=== PATIENT | female | born 1955 | race Caucasian/White ===

== ENCOUNTER 2020-08-26 08:39 | Outpatient (REF) | payer OTHER, SELFPAY ==
--- NOTE | 2020-08-26 | MM_ITS ---
EXAMINATION: MM SCREENING DIGITAL BREAST TOMOSYNTHESIS, BILATERAL CLINICAL INFORMATION: Screening. Asymptomatic. The lifetime risk of breast cancer based on the Tyrer-Cuzick Model is 7.0%. COMPARISON: Mammography: December 03, 2018 and studies dating back to October 05, 2009 TECHNIQUE: Digital breast tomosynthesis is performed in both the craniocaudal and mediolateral oblique views along with computer-aided detection (CAD). Synthesized 2D images are generated from the tomosynthesis. FINDINGS: The breasts are heterogeneously dense, which may obscure small masses (ACR BI-RADS breast composition Category c). There are no significant masses, abnormal calcifications, or other abnormalities. MM/MM tomosynthesis screening BI IMPRESSION: There are no significant changes from prior study. ASSESSMENT: BI-RADS 1: Negative RECOMMENDATION: Routine annual mammography screening. This patient's information was entered into a reminder system with a target due date for their next mammogram.
== END 2020-08-26 08:40 | disposition home or self-care (01) ==
LOC: HO.MAMMO 08:39
PROVIDERS: PCP Internal Medicine; Visit Provider Internal Medicine
DX: Z12.31 Encounter for screening mammogram for malignant neoplasm of breast (principal)
CPT/HCPCS: 77063; 77067

== ENCOUNTER 2021-09-29 08:56 | Outpatient (REF) | payer OTHER, SELFPAY ==
--- NOTE | ~2021-09-29 | MM_ITS ---
EXAMINATION: MM SCREENING DIGITAL BREAST TOMOSYNTHESIS, BILATERAL CLINICAL INFORMATION: Screening. Asymptomatic. The lifetime risk of breast cancer based on the Tyrer-Cuzick Model is 5%. COMPARISON: Mammography: 08/26/2020, 12/03/2018, 07/15/2015 TECHNIQUE: Digital breast tomosynthesis is performed in both the craniocaudal and mediolateral oblique views along with computer-aided detection (CAD). Synthesized 2D images are generated from the tomosynthesis. Technologist notes patient study limitations, healing fracture left shoulder with limited range of motion. Exam optimized to patient capabilities. FINDINGS: There are scattered areas of fibroglandular density (ACR BI-RADS breast composition Category b). There are no significant masses, abnormal calcifications, or other abnormalities. Parenchymal pattern is similar to prior studies. There are no significant changes. MM/MM tomosynthesis screening BI IMPRESSION: No mammographic evidence of malignancy. ASSESSMENT: BI-RADS 1: Negative RECOMMENDATION: Routine annual mammography screening. This patient's information was entered into a reminder system with a target due date for their next mammogram.
== END 2021-09-29 08:57 | disposition home or self-care (01) ==
LOC: HO.MAMMO 08:56
PROVIDERS: Visit Provider Internal Medicine
DX: Z12.31 Encounter for screening mammogram for malignant neoplasm of breast (principal)
CPT/HCPCS: 77063; 77067

== ENCOUNTER 2022-02-24 11:06 | Outpatient (REF) | payer OTHER, SELFPAY ==
--- NOTE | ~2022-02-24 | MM_ITS ---
EXAMINATION: BONE DENSITOMETRY CLINICAL INDICATION: Osteopenia. COMPARISON: Baseline BD dated 06/03/2017. TECHNIQUE: Using a [employer] DXA System (software version: 13.1) manufactured by [employer], dual-energy x-ray absorptiometry was performed of the lumbar spine and left hip. The images are of good technical quality. Summary results are attached. FINDINGS: AP SPINE L1-L4: Current: BMD 0.982 g/cm2, Z-score -0.5, T-score -1.6, osteopenia, 5.5% decrease from baseline (<5% change is not significant). Baseline: BMD 1.039 g/cm2. LEFT FEMUR, NECK: Current: BMD 0.753 g/cm2, Z-score -0.7, T-score -2.1, osteopenia. Baseline: BMD 0.747 g/cm2. LEFT FEMUR, TOTAL: Current: BMD 0.755 g/cm2, Z-score -1.0, T-score -2.0, osteopenia, 4.2% decrease from baseline (<5% change is not significant). Baseline: BMD 0.788 g/cm2. IDENTIFIED RISK FACTORS: Menopause, family history (parent hip fracture), history of fracture (adult), secondary osteoporosis. HISTORY OF FRACTURE: Shoulder/humerus; other, no insufficiency fracture reported. MEDICATIONS: Calcium or multivitamin. Vitamin D. MM/XR DEXA axial skeleton IMPRESSION: 1. DIAGNOSIS: Osteopenia based on the lowest T-score value of -2.1 in the femoral neck applying World Health Organization criteria. 2. 10-YEAR FRACTURE RISK PREDICTION, FRAX: Major osteoporotic fracture (clinical spine, forearm, hip or shoulder) 28.9%. Hip fracture 5.7%. 3. Treatment Recommendations: NOF guidelines recommend consideration for treatment in postmenopausal women and men age 50 and older presenting with the following: -A hip or vertebral (clinical or morphometric) fracture. -T-score less than or equal to -2.5 at the femoral neck or spine after appropriate evaluation to exclude secondary causes. -Low bone mass at the hip or spine and a 10-year fracture probability by FRAX of greater than or equal to 3% for hip fracture or greater than or equal to 20% for major osteoporotic fracture based on the [place] adapted WHO algorithm. 4. Other Recommendations: All treatment decisions require clinical judgment and consideration of individual patient factors, including patient preferences, comorbidities, previous drug use, risk factors not captured in the FRAX model (e.g. frailty, falls, vitamin D deficiency, increased bone turnover, interval significant decline in bone density) and possible under or overestimation of fracture risk by FRAX. Additional medical evaluation for secondary cause of low bone mineral density may be appropriate. FUTURE SCAN RECOMMENDATION: People with diagnosed cases of osteoporosis or at high risk for fracture should have regular bone mineral density tests. For patients eligible for Medicare, routine testing is allowed once every 2 years. The testing frequency can be increased to one year for patients who have rapidly progressing disease, those who are receiving or discontinuing medical therapy to restore bone mass, or have additional risk factors.
== END 2022-02-24 11:07 | disposition home or self-care (01) ==
LOC: HO.MAMMO 11:06
PROVIDERS: PCP Obstetrics & Gynecology; Visit Provider Obstetrics & Gynecology
DX: Z13.820 Encounter for screening for osteoporosis (principal); M85.80 Other specified disorders of bone density and structure, unspecified site; Z78.0 Asymptomatic menopausal state
CPT/HCPCS: 77080

== ENCOUNTER 2022-10-09 09:30 | Outpatient (REF) | payer OTHER, SELFPAY ==
--- NOTE | ~2022-10-09 | MM_ITS ---
EXAMINATION: MM SCREENING DIGITAL BREAST TOMOSYNTHESIS, BILATERAL CLINICAL INFORMATION: Screening. Asymptomatic. The lifetime risk of breast cancer based on the Tyrer-Cuzick Model is 8%. COMPARISON: Mammography: 09/29/2021, 08/26/2020, 12/03/2018 TECHNIQUE: Digital breast tomosynthesis is performed in both the craniocaudal and mediolateral oblique views along with computer-aided detection (CAD). Synthesized 2D images are generated from the tomosynthesis. Additional right MLO view is provided. FINDINGS: There are scattered areas of fibroglandular density (ACR BI-RADS breast composition Category b). There are no significant masses, abnormal calcifications, or other abnormalities. Parenchymal pattern is similar to prior studies. There is no developing density or architectural abnormality. The axilla and skin contours are unremarkable. No significant changes. MM/MM tomosynthesis screening BI IMPRESSION: No mammographic evidence of malignancy. ASSESSMENT: BI-RADS 1: Negative RECOMMENDATION: Routine annual mammography screening. This patient's information was entered into a reminder system with a target due date for their next mammogram.
== END 2022-10-09 09:31 | disposition home or self-care (01) ==
LOC: HO.MAMMO 09:30
PROVIDERS: PCP Internal Medicine; Visit Provider Internal Medicine
DX: Z12.31 Encounter for screening mammogram for malignant neoplasm of breast (principal)
CPT/HCPCS: 77063; 77067

== ENCOUNTER → 2023-10-15 14:45 | Outpatient (BNV) | payer MEDICARE, OTHER, SELFPAY | PROVIDERS: PCP Internal Medicine; Visit Provider Radiology Diagnostic Radiology | DX: Z12.31 Encounter for screening mammogram for malignant neoplasm of breast (principal) | CPT/HCPCS: 77063; 77067 ==

== ENCOUNTER 2023-10-15 14:49 | Outpatient (REF) | payer MEDICARE, OTHER, SELFPAY ==
--- NOTE | ~2023-10-15 | MM_ITS ---
EXAMINATION: MM SCREENING DIGITAL BREAST TOMOSYNTHESIS, BILATERAL CLINICAL INFORMATION: Screening. Asymptomatic. COMPARISON: Mammography: 10/09/2022, 09/29/2021, 08/26/2020, 12/03/2018. TECHNIQUE: Digital breast tomosynthesis is performed in both the craniocaudal and mediolateral oblique views along with computer-aided detection (CAD). Synthesized 2D images are generated from the tomosynthesis. FINDINGS: There are scattered areas of fibroglandular density (ACR BI-RADS breast composition Category b). There are no significant masses, abnormal calcifications, or other abnormalities. No skin or axillary abnormalities. The parenchymal pattern is unchanged from prior exams. MM/MM tomosynthesis screening BI IMPRESSION: No mammographic evidence of malignancy. ASSESSMENT: BI-RADS BI-RADS 1 - Negative RECOMMENDATION: Routine annual mammography screening. 1 year F/U This examination should not preclude the clinical evaluation of a suspicious palpable abnormality. This patient's information was entered into a reminder system with a target due date for their next mammogram.
== END 2023-10-15 14:50 | disposition home or self-care (01) ==
LOC: HO.MAMMO 14:49
PROVIDERS: PCP Internal Medicine; Visit Provider Obstetrics & Gynecology
DX: Z12.31 Encounter for screening mammogram for malignant neoplasm of breast (principal)
CPT/HCPCS: 77063; 77067

== ENCOUNTER 2024-03-24 13:29 | Outpatient (REF) | payer MEDICARE, OTHER, SELFPAY ==
--- NOTE | ~2024-03-24 | MM_ITS ---
EXAMINATION: BONE DENSITOMETRY CLINICAL INDICATION: Menopause. COMPARISON: Previous BD dated 2021 and baseline BD dated 06/03/2017. TECHNIQUE: Using a [employer] DXA System (software version: 13.1) manufactured by [employer], dual-energy x-ray absorptiometry was performed of the lumbar spine and left hip. The images are of good technical quality. Summary results are attached. FINDINGS: LEFT FEMUR, NECK: Current: BMD 0.738 g/cm2, Z-score -0.8, T-score -2.2, osteopenia. Prior: BMD 0.753 g/cm2. Baseline: BMD 0.747 g/cm2. LEFT FEMUR, TOTAL: Current: BMD 0.780 g/cm2, Z-score -0.7, T-score -1.8, osteopenia, 3.3% increase from previous, 1.0% decrease from baseline (<5% change is not significant). Prior: BMD 0.755 g/cm2. Baseline: BMD 0.788 g/cm2. AP SPINE L1-L4: Current: BMD 0.988 g/cm2, Z-score -0.4, T-score -1.6, osteopenia, 0.6% increase from previous, 4.9% decrease from baseline (<5% change is not significant). Prior: BMD 0.982 g/cm2. Baseline: BMD 1.039 g/cm2. IDENTIFIED RISK FACTORS: Menopause, history of fracture (adult), family history (parent hip fracture). HISTORY OF FRACTURE: Shoulder. MEDICATIONS: Calcium or multivitamin. Vitamin D. MM/XR DEXA axial skeleton IMPRESSION: 1. DIAGNOSIS: Osteopenia based on the lowest T-score value of -2.2 in the femoral neck applying World Health Organization criteria. 2. 10-YEAR FRACTURE RISK PREDICTION, FRAX: Major osteoporotic fracture (clinical spine, forearm, hip or shoulder) 29.7%. Hip fracture 9.4%. 3. Treatment Recommendations: NOF guidelines recommend consideration for treatment in postmenopausal women and men age 50 and older presenting with the following: -A hip or vertebral (clinical or morphometric) fracture. -T-score less than or equal to -2.5 at the femoral neck or spine after appropriate evaluation to exclude secondary causes. -Low bone mass at the hip or spine and a 10-year fracture probability by FRAX of greater than or equal to 3% for hip fracture or greater than or equal to 20% for major osteoporotic fracture based on the [place] adapted WHO algorithm. 4. Other Recommendations: All treatment decisions require clinical judgment and consideration of individual patient factors, including patient preferences, comorbidities, previous drug use, risk factors not captured in the FRAX model (e.g. frailty, falls, vitamin D deficiency, increased bone turnover, interval significant decline in bone density) and possible under or overestimation of fracture risk by FRAX. Additional medical evaluation for secondary cause of low bone mineral density may be appropriate. FUTURE SCAN RECOMMENDATION: People with diagnosed cases of osteoporosis or at high risk for fracture should have regular bone mineral density tests. For patients eligible for Medicare, routine testing is allowed once every 2 years. The testing frequency can be increased to one year for patients who have rapidly progressing disease, those who are receiving or discontinuing medical therapy to restore bone mass, or have additional risk factors. Electronically signed by: Saeed Marie MD 03/28/2024 11:20 AM EDT
== END 2024-03-24 13:30 | disposition home or self-care (01) ==
LOC: HO.MAMMO 13:29
PROVIDERS: PCP Internal Medicine; Visit Provider Internal Medicine
DX: Z13.820 Encounter for screening for osteoporosis (principal); Z78.0 Asymptomatic menopausal state; M85.80 Other specified disorders of bone density and structure, unspecified site
CPT/HCPCS: 77080

== ENCOUNTER → 2024-10-17 11:30 | Outpatient (BNV) | payer MEDICARE, OTHER, SELFPAY | PROVIDERS: PCP Internal Medicine; Visit Provider Internal Medicine | DX: Z12.31 Encounter for screening mammogram for malignant neoplasm of breast (principal) | CPT/HCPCS: 77063; 77067 ==

== ENCOUNTER 2024-10-17 11:36 | Outpatient (REF) | payer MEDICARE, OTHER, SELFPAY ==
--- OUTSIDE RECORDS SUMMARY | 2024-10-17 14:22 | XMS_ITS | Data Portability ---
Author Organization [facility], Main Office Address [address] [facility] [address] [place] [address] Care Team Providers Care Insurance Analyst Name Role Phone KALINA FRIED Flue Gas Analyst DONNY LACKEY Urologist KATJA BURKETT Primary Care Provider [facility] ENDO[facility] DIABETES SCHEDULING E ndocrinologist Assessment No assessment recorded. Plan of Treatment Reminders Order Date Submit Date Provider Last Modified By Organization Details Last Modified Time Details Appointments None recor ded. Lab lipid panel , serum 2017 018 abolcun [facility], [address] [facility], [facility], [place], [address], 8 15:39:08 hepat itis C virus Ab, serum 2017 018 abolcun [facility], [address] [address], [place], [address], 8 15:39:07 CBC w/ auto diff 2016 017 abigby [facility], [address] [facility], [facility], [place], [address], 7 16:01:32 Referral ortho pedic refer ral - pt will need shoul tj eval. possi naveen injxn . pt has pain w/ abduc tion of left shoul tj/ tende r on delto id/ may be bursa l infla mmati on 2016 017 nbarrows [facility] (Jimmie Kern), [address] [facility] [place] [address], [place], [address], 7 14:28:26 derma tolog ist refer ral - pt has tiny bluis h lesio n on upper lip. pt tarsha rned if she needs this remov ed 2016 017 holger Richardson MD, [address] [place] [address] , [place], [address], 7 09:59:45 Procedures None recor ded. Surgeries None recor ded. Imaging MAMMO , scree marc, bilat eral - Perfo rm Diagn ostic Mammo gram and Breas t Ultra sound if neede d / Perfo rm Ultra sound Guide d Aspir ation and/o r Breas t Biops y if warra nted 2017 018 [email or web address] [facility], [address] [place], [address], 8 16:17:53 Medication Orders Lexap ro 20 mg table t 2017 018 [email or web address] Not available 8 16:16:56 ibupr ofen 600 mg table t 2016 017 [facility], [address] [place], [address], 8 15:18:54 Lexap ro 20 mg table t 2016 017 mdalessandro Not available 7 14:04:45 ranit idine 150 mg table t 2016 017 [email or web address] Not available 7 14:04:45 Beulah conrad Perle s 100 mg capsu le 2015 016 [id number], [address], [place], [id number], 7 13:45:43 predn isone 20 mg table t 2015 016 [id number], [address], [place], [id number], 7 13:27:41 doxyc yclin e hycla te 100 mg table t 2015 016 [facility][id number], [address], [place], [id number], 7 13:27:21 Patient TargetsNo targets recorded. Patient Instructions Encounter Date Encounter Id Patient Instructions Last Modified By Organization Details Last Modified Time 10/24/2015 [id number] Medications (OTC, herbal therapies, supplements) reviewed and reconciled with patient and or caregiver, including potential side effects, drug interactions, instructions, and the consequences of not taking medication. Reviewed potential barriers to medication adherence, such as side effects from medication or cost of medication. ely Not available 10/24/2015 11:57:18 11/10/2016 [id number] Medications (OTC, herbal therapies, supplements) reviewed and reconciled with patient and or caregiver, including potential side effects, drug interactions, instructions, and the consequences of not taking medication. Reviewed potential barriers to medication adherence, such as side effects from medication or cost of medication. [email or web address] Not available 11/10/2016 14:03:19 10/27/2017 [id number] upper respiratory infection (cold): care instructions Not available 10/27/2017 11:02:14 saline nasal washes: care instructions Not available 10/27/2017 11:02:14 Chart reviewed, agree with above assessment and plan. 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 pt concerned if she needs this removed Referring Physician: Raul Gimenez, Internal Medicine, Encounter Date: 11/10/2016 Orthopedic Referral for Shou lder pain pt will need shoulder eval. possibly injxn. pt has pain w/ abduction of left shoulder/ tender on deltoid/ may be bursal inflammation Referring Physician: Raul Gimenez, Internal Medicine, Encounter Date: 05/20/2017 Results Created Date Observation Date Name Description Value Unit Range Abnormal Flag Note LastModifiedBy Organization Detail LastModifiedTime 10/02/19 16 10/02/2015 rapid strep group A, throa t Strep negati ve Not Available In-Office Order Internal Use Only DO Not Attach Compendium DO Not Attach Compendium, Do Not Delete/merge, [id number] 10/02/2015 11:38:57 10/02/19 16 10/02/2015 strep tococ cus group A, cultu re, throa t specimen description THROAT SWAB Not Available [facility] (Centralized Electronic Ordering - All Locations) Patient Can Go To The Location Of Their Choice, [id number] 10/04/2015 09:51:07 10/02/19 16 10/02/2015 strep tococ cus group A, cultu re, throa t special requests NONE Not Available [facility] (Centralized Electronic Ordering - All Locations) Patient Can Go To The Location Of Their Choice, [id number] 10/04/2015 09:51:07 10/02/19 16 10/04/2015 strep tococ cus group A, cultu re, throa t culture NO GROUP A BETA HEMOLY TIC STREPT OCOCCI ISOLAT ED Not Available [facility] (Centralized Electronic Ordering - All Locations) Patient Can Go To The Location Of Their Choice, [id number] 10/04/2015 09:51:07 10/02/19 16 10/04/2015 strep tococ cus group A, cultu re, throa t report status FINAL 2015 Not Available [facility] (Centralized Electronic Ordering - All Locations) Patient Can Go To The Location Of Their Choice, [id number] 10/04/2015 09:51:07 10/22/19 16 10/22/2015 CT maxil lofac e w/o contr ast CT of the sinuse s HISTOR Y: Chroni c sinusi tis. TECHNI QUE: Noncon trast axial CT of the sinuse s was perfor med with salazar l and sagitt al reform atted images . RADIAT ION DOSE PARAME TERS: CTDIvo l Head: 10.62 mGy, DLP Head: 155 mGy*cm . COMPAR DERICK: None availa ble. FINDIN GS: There is mild volume loss in the visual ized brain. The orbita l soft tissue s are normal . Centra l skull base is grossl y unrema rkable . All of the sinuse s are well-d evelop ed. There is no signif icant mucosa l thicke marc in any of the sinuse s. The lamina papyra cea are intact . The left fovea ethmoi maryuri is about 3 mm higher than the right. There is an incomp lete obliqu kaylin orient ed horizo ntal septat ion throug h each maxill narendra sinus, throug h which the infrao rbital canal pablo ses on each side. Both ostiom eatal units are patent . There is a small left devi bullos a and devi lamell a with very slight rightw taylor deviat ion of the nasal septum . Nasal cavity is well aerate d. The visual ized mastoi ds and middle ear clefts are well develo ped and normal ly aerate d. IMPRES KOKI: There is no parana patricia sinus diseas e. Slight rightw taylor deviat ion of the nasal septum . Dictat ed By: Oneyda Bello MD Dictat ed Date/T adelso: 11:18 a Review ed By: Oneyda Bello MD Signed By: Oneyda Bello MD Signed Date/T adelso: 11:18 am Transc ribed By: CSB Transc ribed Date/T adelso: 11:18 am Patien t Class: Outpat ient [facility] (Outpt Imaging) [address], [place], [address], 11/02/2015 11:51:17 10/22/19 16 10/22/2015 CT maxil lofac e w/o contr ast CT of the sinuse s HISTOR Y: Chroni c sinusi tis. TECHNI QUE: Noncon trast axial CT of the sinuse s was perfor med with salazar l and sagitt al reform atted images . RADIAT ION DOSE PARAME TERS: CTDIvo l Head: 10.62 mGy, DLP Head: 155 mGy*cm . COMPAR DERICK: None availa ble. FINDIN GS: There is mild volume loss in the visual ized brain. The orbita l soft tissue s are normal . Centra l skull base is grossl y unrema rkable . All of the sinuse s are well-d evelop ed. There is no signif icant mucosa l thicke marc in any of the sinuse s. The lamina papyra cea are intact . The left fovea ethmoi maryuri is about 3 mm higher than the right. There is an incomp lete obliqu kaylin orient ed horizo ntal septat ion throug h each maxill narendra sinus, throug h which the infrao rbital canal pablo ses on each side. Both ostiom eatal units are patent . There is a small left devi bullos a and devi lamell a with very slight rightw taylor deviat ion of the nasal septum . Nasal cavity is well aerate d. The visual ized mastoi ds and middle ear clefts are well develo ped and normal ly aerate d. IMPRES KOKI: There is no parana patricia sinus diseas e. Slight rightw taylor deviat ion of the nasal septum . Dictat ed By: Oneyda Bello MD Dictat ed Date/T adelso: 11:18 a Review ed By: Oneyda Bello MD Signed By: Oneyda Bello MD Signed Date/T adelso: 11:18 am Transc ribed By: JESÚS Transc ribed Date/T adelso: 11:18 am Patien t Class: Outpat ient [facility] (Outpt Imaging) [address], [place], [address], 11/02/2015 11:51:16 01/24/20 16 01/15/2016 LDCT, chest , for lung cance r scree marc No observ ation record ed. contra [facility] [place] [address] [facility] [address], [place], [address], 01/24/2016 11:34:05 11/12/19 17 07/15/2015 MAMMO , scree marc, bilat eral No observ ation record ed. [facility] [address] [place] [address], [place], [address], 11/11/2016 15:47:54 06/09/20 17 06/03/2017 bone densi ty No observ ation record ed. [email or web address] Not Available 2016 11:44:23 12/03/19 18 07/15/2015 MAMMO , scree marc, digit al, bilat eral No observ ation record ed. [address], [place], [address], 12/03/2017 09:39:23 Result Notes None recorded. Problems Name Problem SNOMED Code Status Onset Date Resolution Date Notes Provider Name and Address Organization Details Recorded Time Abdomina l pain 78046253 Completed 201202/06/2014 RECORDED 08/12/19 13 2:33PM BY EDELMIRA BRADLEY MA, LULA ON/ADDELIGIO dominguez [facility] 6 12:03:32 Anxiety state 038986382 Active 2012 Teressa dominguez [facility] 7 10:37:51 Tobacco user 048776203 Active 2012 Teressa dominguez [facility] 7 10:39:46 History of clinical finding in subject 155265392 Completed 201211/10/2016 RECORDED 05/29/20 13 8:26AM BY JANESSA ARREDONDO MA, ANNOTATI ON/ADDELIGIO dominguez [facility] 7 10:38:48 Examinat ion for suspecte d mental disorder Completed 201202/06/2014 RECORDED 01/06/20 13 3:33PM BY EDELMIRA BRADLEY MA, ANNOTATI ON/ADDEN DUM Raul D'Alessan bobby null, [facility] 6 12:03:32 Basal cell carcinom a of skin 157077433 Active 2012 Teressa dominguez, [facility] 7 10:37:57 Hematoch ezia 928384694 Completed 201202/06/2014 RECORDED 08/12/19 13 2:32PM BY EDELMIRA BRADLEY MA, ANNOTATI ON/ADDEN DUM Raul D'Alessan bobby null, [facility] 6 12:03:32 Screenin g for malignan t neoplasm of cervix Completed 201202/06/2014 RECORDED 01/06/20 13 3:33PM BY EDELMIRA BRADLEY MA, ANNOTATI ON/ADDEN DUM Raul D'Alessan bobby null, [facility] 6 12:03:32 Ulcerati ve colitis 33549888 Active 2012 Teressa dominguez, [facility] 7 10:39:22 Screenin g for malignan t neoplasm of colon Completed 201102/06/2014 RECORDED 06/21/20 12 2:34PM BY EDELMIRA BRADLEY MA, ALEXANDERATI ON/ADDEN DUM Teressa dominguez, [facility] 7 10:38:29 Constipa tion 72198194 Completed 201202/06/2014 RECORDED 08/12/19 13 2:32PM BY EDELMIRA BRADLEY MA, ANNOTATI ON/ADDEN DUM Raul D'Alessan bobby null, [facility] 6 12:03:31 Single major depressi ve episode Active 2012 Teressa dominguez, [facility] 7 10:38:21 Diarrhea 06651596 Completed 201202/06/2014 RECORDED 08/12/19 13 2:32PM BY EDELMIRA BRADLEY MA, ANNOTATI ON/ADDEN DUM Raul D'Alessan bobby null, [facility] 6 12:03:32 Elevated blood-pr essure reading without diagnosi s of hyperten koki 417353049 Completed 201202/06/2014 RECORDED 04/07/20 13 3:14PM BY EDELMIRA BRADLEY MA, ANNOTATI ON/ADDEN DUM Raul D'Alessan bobby null, [facility] 6 12:03:32 Follow-u p encounte r Completed 201202/06/2014 RECORDED 01/06/20 13 3:33PM BY EDELMIRA BRADLEY MA, ANNOTATI ON/ADDEN DUM Raul D'Alessan bobby null, [facility] 6 12:03:32 Malaise and fatigue 246591473 Completed 201211/10/2016 RECORDED 05/29/20 13 8:26AM BY JANESSA ARREDONDO MA, OFFICE VISIT Teressa dominguez, [facility] 7 10:38:25 Flatulen ce, eructati on and gas pain 802274088 Completed 201202/06/2014 RECORDED 08/12/19 13 2:32PM BY EDELMIRA BRADLEY MA, ANNOTATI ON/ADDEN DUM Raul D'Alessan bobby null, [facility] 6 12:03:32 Influenz a vaccine needed [id number] 06 Completed 201202/06/2014 RECORDED 05/29/20 13 8:26AM BY JANESSA ARREDONDO MA, ANNOTATI ON/ADDEN DUM Raul D'Alessan bobby null, [facility] 6 12:03:32 Tobacco user 724006881 Completed 201202/06/2014 RECORDED 05/29/20 13 8:26AM BY JANESSA ARREDONDO MA, ANNOTATI ON/ADDEN DUM Teressa dominguez, [facility] 7 10:39:46 Adult health examinat ion Completed 201311/10/2016 RECORDED 08/08/19 14 11:17AM BY WALTER BARBA, HISTORIC AL SUMMARY Teressa dominguez, [facility] 7 10:37:59 Adult health examinat ion Completed 201102/06/2014 RECORDED 06/21/20 12 2:34PM BY EDELMIRA BRADLEY MA, ANNOTATI ON/ADDEN DUM Teressa Weaver MA null, [facility] 7 10:37:59 Gastroes ophageal reflux disease 098740698 Active 2012 Teressa Weaver MA null, [facility] 7 10:37:42 Hyperlip idemia 97808224 Active 2012 Teressa Weaver MA null, [facility] 7 10:39:13 Indigest ion 075483417 Completed 201202/06/2014 RECORDED 08/12/19 13 2:32PM BY EDELMIRA BRADLEY MA, ANNOTATI ON/ADDEN DUM Raul D'Alessan bobby null, [facility] 6 12:03:31 Screenin g for malignan t neoplasm of breast Completed 201102/06/2014 RECORDED 06/21/20 12 2:34PM BY EDELMIRA BRADLEY MA, ANNOTATI ON/ADDEN DUM Raul D'Alessan bobby null, [facility] 6 12:03:32 Neoplasm of uncertai n behavior of skin 31397808 Completed 201102/06/2014 RECORDED 06/21/20 12 2:34PM BY EDELMIRA BRADLEY MA, ANNOTATI ON/ADDEN DUM Raul D'Alessan bobby null, [facility] 6 12:03:31 Osteopor osis 08302317 Active 2012 Teressa dominguez, [facility] 7 10:39:27 Shoulder joint pain 050985396 Completed 201202/06/2014 RECORDED 01/06/20 13 3:33PM BY EDELMIRA BRADLEY MA, ANNOTATI ON/ADDEN [facility] Raul dominguez [facility] 6 12:03:32 Allergic rhinitis 35187019 Completed 201211/10/2016 RECORDED 05/29/20 13 8:26AM BY JANESSA ARREDONDO MA, OFFICE VISIT Teressa dominguez, [facility] 7 10:39:04 Chronic sinusiti s 64110824 Completed 201211/10/2016 IMPRESSI ON: ENCOURAG E REST AND HYDRATIO N. RTC IF PERSISTE NT OR WORSENIN G SYMPTOMS .; RECORDED 05/29/20 13 9:53AM BY KALINA JOHNSON PA-C, OFFICE VISIT Teressa dominguez [facility] 7 10:38:33 Sleep disorder 59362337 Active 2012 Teressa dominguez [facility] 7 10:38:45 Administ ration of diphther ia and tetanus vaccine Completed 201102/06/2014 RECORDED 06/21/20 12 2:34PM BY EDELMIRA BRADLEY MA, LULA ON/[facility] Raul dominguez [facility] 6 12:03:32 Benign neoplasm of colon 41127038 Active 2012 Teressa dominguez [facility] 7 10:39:34 Urinary tract infectio us disease 52126123 Active 2012 Teressa dominguez [facility] 7 10:39:31 Abdomina l pain 11436990 Completed 201203/05/2014 RECORDED 08/12/19 13 2:33PM BY EDELMIRA BRADLEY MA, ANNOTATI ON/[facility] Raul dominguez [facility] 6 12:03:32 Examinat ion for suspecte d mental disorder Completed 201203/05/2014 RECORDED 01/06/20 13 3:33PM BY EDELMIRA BRADLEY MA, ANNOTATI ON/ADDEN DUM Raul D'Alessan bobby null, [facility] 6 12:03:32 Hematoch ezia 865298669 Completed 201203/05/2014 RECORDED 08/12/19 13 2:32PM BY EDELMIRA BRADLEY MA, ANNOTATI ON/ADDEN DUM Raul D'Alessan bobby null, [facility] 6 12:03:32 Screenin g for malignan t neoplasm of cervix Completed 201203/05/2014 RECORDED 01/06/20 13 3:33PM BY EDELMIRA BRADLEY MA, ANNOTATI ON/ADDEN DUM Raul D'Alessan bobby null, [facility] 6 12:03:32 Screenin g for malignan t neoplasm of colon Completed 201311/10/2016 RECORDED 12/28/19 14 10:49AM BY BERNADINE MIGUEL AL SUMMARY Teressa Weaver MA null, [facility] 7 10:38:29 Constipa tion 28185540 Completed 201203/05/2014 RECORDED 08/12/19 13 2:32PM BY EDELMIRA BRADLEY MA, ANNOTYAO ON/ADDEN DUM Raul D'Alessan bobby null, [facility] 6 12:03:32 Diarrhea 25035003 Completed 201203/05/2014 RECORDED 08/12/19 13 2:32PM BY EDELMIRA BRADLEY MA, LULA ON/ADDEN DUM Raul D'Alessan bobby null, [facility] 6 12:03:32 Elevated blood-pr essure reading without diagnosi s of hyperten koki 160732991 Completed 201203/05/2014 RECORDED 04/07/20 13 3:14PM BY EDELMIRA BRADLEY MA, ANNOTYAO ON/ADDEN DUM Raul D'Alessan bobby null, [facility] 6 12:03:32 Follow-u p encounte r Completed 201203/05/2014 RECORDED 01/06/20 13 3:33PM BY EDELMIRA BRADLEY MA, ANNOTYAO ON/ADDEN DUM Raul D'Alessan bobby null, [facility] 6 12:03:32 Flatulen ce, eructati on and gas pain 644862462 Completed 201203/05/2014 RECORDED 08/12/19 13 2:32PM BY EDELMIRA BRADLEY MA, ANNOTATI ON/ADDEN DUM Raul D'Alessan bobby null, [facility] 6 12:03:32 Influenz a vaccine needed [id number] 06 Completed 201203/05/2014 RECORDED 05/29/20 13 8:26AM BY JANESSA ARREDONDO MA, ANNOTATI ON/ADDEN DUM Raul D'Alessan bobby null, [facility] 6 12:03:32 Indigest ion 302802681 Completed 201203/05/2014 RECORDED 08/12/19 13 2:32PM BY EDELMIRA BRADLEY MA, ANNOTATI ON/ADDEN DUM Raul D'Alessan bobby null, [facility] 6 12:03:31 Screenin g for malignan t neoplasm of breast Completed 201103/05/2014 RECORDED 06/21/20 12 2:34PM BY EDELMIRA BRADLEY MA, LULA ON/ADDEN DUM Raul D'Alessan bobby null, [facility] 6 12:03:32 Neoplasm of uncertai n behavior of skin 22089692 Completed 201103/05/2014 RECORDED 06/21/20 12 2:34PM BY EDELMIRA BRADLEY MA, LULA ON/ADDEN DUM Raul D'Alessan bobby null, [facility] 6 12:03:31 Shoulder joint pain 957034856 Completed 201203/05/2014 RECORDED 01/06/20 13 3:33PM BY EDELMIRA BRADLEY MA, LULA ON/ADD [facility] Raul BrendanCrystal rosales alberto [facility] 6 12:03:32 Administ ration of diphther ia and tetanus vaccine Completed 201103/05/2014 RECORDED 06/21/20 12 2:34PM BY EDELMIRA BRADLEY MA, LULA ON/ADDEN DUM Raul rosales alberto [facility] 6 12:03:32 Body mass index 30+ - obesity 844469531 Active Raul Thomasanabelakeith dominguez [facility] 6 12:03:32 Insomnia 247413604 Active Raul Vázquezkeith bobby dominguez [facility] 6 12:03:31 Knee pain Completed 11/10/2016 Teressa dominguez [facility] 7 10:38:38 Upper respirat ory infectio n 88073311 Completed 11/10/2016 Teressa dominguez [facility] 7 10:38:54 Acute pharyngi tis 692214807 Completed 11/10/2016 Teressa dominguez [facility] 7 10:38:35 Acute sinusiti s 51337626 Completed 11/10/2016 Teressa dominguez [facility] 7 10:37:37 Laryngit is 77705859 Completed 11/10/2016 Teressa dominguez [facility] 7 10:39:00 Cough 87408657 Completed 11/10/2016 Teressa dominguez [facility] 7 10:38:58 Problem Notes None recorded. Procedures Surgical History Date Name Laterality Status Provider Name and Address Organization Details Recorded Time 06/03/20 17 Most Recent Bone Density completed Tia Barba [facility] 06/10/2017 11:44:48 06/03/20 17 Dxa bone density elodia vrt fx completed Tia Barba [facility] 06/10/2017 11:44:37 10/04/19 16 [facility]2016 10:42:37 07/15/20 15 Most Recent Mammogram completed Teressa Weaver [facility] 08/28/2015 15:51:20 07/15/20 15 Mammogram both breasts completed Daija Troy [facility] 12/03/2017 09:39:08 12/21/19 14 Date of Last Colonoscopy completed [facility] 11/12/2016 10:43:02 12/21/19 14 Colonoscopy completed [facility] 09/25/2015 10:46:33 12/21/19 14 Egd diagnostic brush wash completed Teressa Weaver [facility] 11/10/2016 10:55:14 ENT Surgery completed Janessa Arredondo [facility] 07/17/2014 08:09:54 Imaging Results Imaging Date Name Status LastModified by Organiz ation Details LastModified Time 10/22/2015 CT maxilloface w/o contrast completed [facility] ([facility] Imaging) [address] [place], [address], 11/02/2015 11:51:17 10/22/2015 CT maxilloface w/o contrast completed [facility] ([facility]) [address] [place], [address], 11/02/2015 11:51:16 01/15/2016 LDCT, chest, for lung cancer screening completed contra [facility] [place] [address], [address], 01/24/2016 11:34:05 07/15/2015 MAMMO, screening, bilateral completed [facility] (Imaging) [address] [place], [address], 11/11/2016 15:47:54 06/03/2017 bone density completed [email or web address] Information not available 06/10/2017 11:44:23 07/15/2015 MAMMO, screening, digital, bilateral completed [address], [place], [address], 12/03/2017 09:39:23 Procedure Notes None recorded. Medical Equipment None Reported. Allergies Allergen ID Allergen Name Allergen Category Reaction Reaction Severity Criticality Documentation Date Start Date Code Code System Note Provider Name and Address Organization Details Recorded Time 53365 Bactrim medicatio n rash severe Not available 07/17/2014 01962 9 RxNorm joint pain, nause a Janessa Everette alberto [facility] 4 11:04:11 91645 Substance with sulfonami de structure and antibacte rial mechanism of action (substanc e) medicatio n hives Not available Not available 08/28/2015 25852 8003 [facility] Teressa dominguez [facility] [place] 6 15:49:38 4323 Product containin g penicilli n (product) medicatio n Not available Not available Not available 02/06/20142012 34006 8001 [facility] [place] 7 13:26:29 Medications Name Sig Start Date Stop Date Status Note LastModified by Organization Details LastModified Time benzonata te 100 mg caps 11/10 completed Not Available Not Available Not Available escitalop kelly oxalate 20 mg tabs 11/10 completed Not Available Not Available Not Available prednison e 20 mg tabs active Not Available Not Available Not Available ranitidin e 300 mg tablet Take 1 tablet twice a day by oral route for 30 days. 10/27 completed Not Available Not Available Not Available Claritin 10 mg tablet Take 1 tablet every day by oral route. active Not Available Not Available No t Available prednison e 20 mg tablet Take 2 tablets every day by oral route for 5 days. 11/10 completed Not Available Not Available Not Available clonazepa m 0.5 mg tablet Take 1 tablet every day by oral route for 30 days. 08/28 completed Not Available Not Available Not Available Zithromax Z-Theo 250 mg tablet QD 06/03 completed RECORDED 06/26/20 13 9:41AM BY KALINA JOHNSON PA-C, MEDICATI ON AUTO-TRINH CTIVATIO N;2PO QD FOR 1 DAY, THEN 1 QD FOR 4 DAYS. Not Available Not Available Not Available sulfameth oxazole 800 mg-trimet hoprim 160 mg tablet BID 06/29 completed RECORDED 08/08/19 14 11:17AM BY DELISA ORO, MEDICATI ON AUTO-TRINH CTIVATIO N; Not Available Not Available Not Available benzonata te 100 mg capsule Take 2 capsules 3 times a day by oral route for 5 days. 11/10 completed Not Available Not Available Not Available ranitidin e 150 mg tablet TAKE ONE TABLET BY MOUTH TWICE A DAY 2017 active Not Available Not Available Not Avai lable omeprazol e 20 mg capsule,d elayed release one po daily 11/30 completed Not Available Not Available Not Available ibuprofen 600 mg tablet Take 1 tablet twice a day by oral route for 30 days. 11/23 completed Not Available Not Available Not Available fluticaso ne propionat e 50 mcg/actua tion nasal spray,miriam pension Inhale 1 spray every day by nasal route as directed for 30 days. 10/27 completed Not Available Not Available Not Available doxycycli ne hyclate 100 mg tablet Take 1 tablet twice a day by oral route for 10 days. 11/10 completed Not Available Not Available Not Available naproxen 500 mg tablet Take 1 tablet twice a day by oral route for 30 days. 08/29 completed Not Available Not Available Not Available amoxicill in 875 mg-potass ium clavulana te 125 mg tablet 11/10 completed Not Available Not Available Not Available oxycodone 5 mg tablet 11/10 completed Not Available Not Available Not Available Lexapro 20 mg tablet Take 1 tablet(s ) every day by oral route for 90 days. 2017 active Not Available Not Available Not Avai lable Vitamin D3 25 mcg (1,000 unit) tablet Take 1 tablet every day by oral route. active Not Available Not Available No t Available mesalamin e 1,000 mg rectal supposito ry AT BEDTIME 05/29 completed RECORDED 05/29/20 13 9:18AM BY PAVAN DAVIES, OFFICE VISIT;GI PRESCRIB ES Not Available Not Available Not Available omeprazol e DAILY 05/29 completed RECORDED 05/29/20 13 9:18AM BY PAVAN DAVIES, OFFICE VISIT; Not Available Not Available Not Available Zostavax (PF) 19,400 unit/0.65 mL subcutane ous suspensio n 11/10 completed Not Available Not Available Not Available ProAir HFA 90 mcg/actua tion aerosol inhaler Inhale 2 puffs as needed by inhalati on route as needed for 50 days. 11/10 completed Not Available Not Available Not Available Fluvirin 8943-9197 45 mcg (15 mcg x 3)/0.5 mL intramusc ular suspensio n 11/10 completed Not Available Not Available Not Available Fluvirin 8253-0179 (PF)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
--- OUTSIDE RECORDS SUMMARY | 2024-10-17 14:22 | XMS_ITS | Continuity of Care Document ---
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 Care Team Information Receive r [phone] Social History Type Date Description Comments Sex Unknown Medical Devices Description No Information Available Encounters Description No Information Available Assessments Description No Information Available Plan of Treatment Future Appointment(s):* 12/19/2024 1:45 pm - Garry Garcia M.D. at Main Office Functional Status Description No Information Available Mental Status Description No Information Available Referrals Description No Information Available
== END 2024-10-17 11:37 | disposition home or self-care (01) ==
LOC: HO.MAMMO 11:36
PROVIDERS: PCP Internal Medicine; Visit Provider Obstetrics & Gynecology
DX: Z12.31 Encounter for screening mammogram for malignant neoplasm of breast (principal)
CPT/HCPCS: 77063; 77067